=== PATIENT | female | born 2000 | race Caucasian/White ===

== ENCOUNTER 2018-09-15 22:32 | Emergency (ER) | payer OTHER ==
--- NOTE | 2018-09-15 23:11 | ERPHSYRPT ---
- History of Present Illness Time Seen by Provider: 09/15/18 23:07 Source: patient Exam Limitations: no limitations Patient Subjective Stated Complaint: pt reports shes had 2 positive at home tests. pt reports both tests were "faintly" positive, pt reports s/s, states she has breast tenderness and low back pain as well as morning sickness. pt states she believes she is 2 months . Triage Nursing Assessment: pt is aox3, pupils perrl, afebrile, resps easy and non labored, radial pulses strong and equal, cap refill < 3 seconds, abd soft non tender, pt skin pink warm dry. Physician History: Pt had her last menstrual period 2 months ago, she had few cramps, denies current complaints. She had 2 home tests, vaguely positive, and she is concerned, that she is possibly . She denies vaginal bleeding, discharge, current pain, cramps or other complaints. Timing/Duration: gradual onset, other (2 months) Activites at Onset: none Quality: cramping Onset Location: unknown Pain Radiation: none Severity of Pain-Max: moderate Severity of Pain-Current: none Prior abdominal problems: none Sexual intercourse history: single partner Modifying Factors: Improves With: nothing Associated Symptoms: denies symptoms Allergies/Adverse Reactions: No Known Drug Allergies Allergy (Unverified 09/15/18 22:56) Home Medications: No Reportable Medications [No Reported Medications] 09/15/18 [History] Hx Tetanus, Diphtheria Vaccination/Date Given: Yes Hx Influenza Vaccination/Date Given: No Hx Pneumococcal Vaccination/Date Given: No - Review of Systems Constitutional: No Symptoms Ears, Nose, & Throat: No Symptoms Respiratory: No Symptoms Cardiac: No Symptoms Abdominal/Gastrointestinal: Other (cramps) Genitourinary Symptoms: No Symptoms Musculoskeletal: No Symptoms Skin: No Symptoms Neurological: No Symptoms All Other Systems: Reviewed and Negative - Past Medical History Pertinent Past Medical History: No - Past Surgical History Past Surgical History: Yes Other Surgical History: ear tubes as a child - Social History Smoking Status: Never smoker Drug Use: none Patient Lives Alone: Yes - Female History Hx Last Menstrual Period: 07/10/18 Hx Now: Yes - Nursing Vital Signs Nursing Vital Signs: Initial Vital Signs Temperature 98.4 F 09/15/18 22:36 Pulse Rate 100 H 09/15/18 22:36 Respiratory Rate 20 09/15/18 22:36 Blood Pressure 151/81 09/15/18 22:36 O2 Sat by Pulse Oximetry 99 09/15/18 22:36 Pain Scale Pain Intensity 0 - Physical Exam General Appearance: no apparent distress Eye Exam: eyes nml inspection Ears, Nose, Throat Exam: normal ENT inspection Neck Exam: normal inspection, non-tender Respiratory Exam: normal breath sounds, lungs clear Cardiovascular Exam: regular rate/rhythm, normal heart sounds, normal peripheral pulses, No murmur Gastrointestinal/Abdomen Exam: soft, normal bowel sounds, No tenderness, No distention, No mass, No guarding, No ecchymosis, No rebound, No organomegaly Pelvic Exam: not done Back Exam: normal inspection, No CVA tenderness Extremity Exam: normal inspection Neurologic Exam: alert, oriented x 3, normal mood/affect Skin Exam: normal color, warm, dry Lymphatic Exam: adenopathy SpO2 Interpretation: normal SpO2: 99 O2 Delivery: Room Air - Course Nursing assessment & vital signs reviewed: Yes Ordered Tests: Active Orders 24 hr Category Date Time Status HCG,QUALITATIVE URINE Stat Lab 09/15/18 23:40 Completed Lab/Rad Data: Laboratory Results 09/15/18 Range/Units 23:40 Urine HCG, Qual NEGATIVE (Negative) - Progress Progress: unchanged Air Movement: good Progress Note: 09/16/18 00:07 Pt remains pain free, asymptomatic, informed about negative urine tets , and discharged to follow up with her physician next week. Blood Culture(s) Obtained: No Antibiotics given: No Counseled pt/family regarding: lab results, diagnosis, need for follow-up - Departure Departure Disposition: Home Clinical Impression: Abdominal pain Qualifiers: Abdominal location: generalized Qualified Code(s): R10.84 - Generalized abdominal pain Condition: Stable Critical Care Time: No Referrals: DOCTOR,NO FAMILY [Primary Care Provider] - Instructions: Symptoms Additional Instructions: Rest x 2-3 days, drink plenty of fluids, and follow up with your physician in 2- 3 days, return if severe pain, vomiting, vaginal bleeding!
[2018-09-16 00:09] VITALS: O2SAT 99
[2018-09-16 00:35] VITALS: BP 134/76; PULSE 93
== END 2018-09-16 00:38 | disposition home or self-care (01) ==
LOC: ED 22:32
DX: R10.84 Generalized abdominal pain (principal)
CPT/HCPCS: 84703; 99283

== ENCOUNTER 2018-10-13 22:49 | Emergency (ER) | payer OTHER ==
[2018-10-13 23:09] VITALS: PULSE 77; O2SAT 98
[2018-10-14] MEDS ORDERED: Rocephin 1000 MG INJ IM ONE (00:18)
[2018-10-14] MEDS ORDERED: Rocephin 1000 MG INJ ONE (00:26)
--- NOTE | 2018-10-14 00:28 | ERPHSYRPT ---
- History of Present Illness Time Seen by Provider: 10/14/18 00:05 Source: patient Exam Limitations: no limitations Patient Subjective Stated Complaint: Left earache/drainage Triage Nursing Assessment: Patient ambulated back to ED and transferred self to bed. Patient A+O X 3. Patient's skin pink, warm and dry. Patient complains of left ear pain 7/10 constant throbbing pain. Patient states last night she noticed drainage coming from left ear around 2100. Patient reports having rafael ear tubes placed in Mar of this year. Patient states drainage was thick yellow/ white. Physician History: 1 y/o white female with h/o bilat myringotomy tubes placed in March 2018 for recurrent ear infections presents with mild left earache and yellowish drainage. began at 2100 last pm. this is second time she has had tubes placed. denies fever. her ent doctor is Dr. Jimenez. Timing/Duration: abrupt onset, this evening Severity: mild ENT Location: ear (L) Prearrival Treatment: no prearrival treatment Modifying Factors: Improves With: nothing Associated Symptoms: ear pain (L), No fever, No chills, No change in hearing Allergies/Adverse Reactions: No Known Drug Allergies Allergy (Verified 10/13/18 22:58) Hx Tetanus, Diphtheria Vaccination/Date Given: Yes Hx Influenza Vaccination/Date Given: No Hx Pneumococcal Vaccination/Date Given: No Immunizations Up to Date: Yes - Review of Systems Constitutional: No Symptoms Eyes: No Symptoms Ears, Nose, & Throat: Ear Pain (left), Ear Discharge (left) Respiratory: No Symptoms Cardiac: No Symptoms Abdominal/Gastrointestinal: No Symptoms Genitourinary Symptoms: No Symptoms Musculoskeletal: No Symptoms Skin: No Symptoms Neurological: No Symptoms Psychological: No Symptoms Endocrine: No Symptoms Hematologic/Lymphatic: No Symptoms Immunological/Allergic: No Symptoms All Other Systems: Reviewed and Negative - Past Medical History Pertinent Past Medical History: No Neurological History: No Pertinent History ENT History: No Pertinent History Cardiac History: No Pertinent History Respiratory History: No Pertinent History Endocrine Medical History: No Pertinent History Musculoskeletal History: No Pertinent History GI Medical History: No Pertinent History History: No Pertinent History Psycho-Social History: No Pertinent History Female Reproductive Disorders: No Pertinent History - Past Surgical History Past Surgical History: Yes Neuro Surgical History: No Pertinent History Cardiac: No Pertinent History Respiratory: No Pertinent History Gastrointestinal: No Pertinent History Genitourinary: No Pertinent History Musculoskeletal: No Pertinent History Female Surgical History: No Pertinent History Other Surgical History: rafael ear tubes in mar 2018 - Social History Smoking Status: Never smoker Exposure to second hand smoke: No Drug Use: none Patient Lives Alone: No - Female History Hx Last Menstrual Period: last week Hx Now: No - Nursing Vital Signs Nursing Vital Signs: Initial Vital Signs Temperature 98.3 F 10/13/18 23:00 Pulse Rate 77 10/13/18 23:00 Respiratory Rate 18 10/13/18 23:00 Blood Pressure 143/88 10/13/18 23:00 O2 Sat by Pulse Oximetry 98 10/13/18 23:00 Pain Scale Pain Intensity 7 - Physical Exam General Appearance: no apparent distress, alert, anxiety Eye Exam: bilateral eye: normal inspection, PERRL, EOMI Ear Exam: left ear: discharge, bilateral ear: auricle normal, canal normal, other (myringotomy tubes in place. ?opening left tm with tube moved.) Nasal Exam: normal inspection Throat Exam: normal, pharynx normal, dental tenderness Neck Exam: normal inspection, non-tender, supple, full range of motion, trachea midline Cardiovascular/Respiratory Exam: chest non-tender, normal breath sounds, regular rate/rhythm, heart sounds normal Abdominal Exam: non-tender Neurologic Exam: alert, oriented x 3, cooperative, monorail hooker II-XII nml as tested Skin Exam: normal color, warm, dry SpO2 Interpretation: normal SpO2: 98 O2 Delivery: Room Air - Course Nursing assessment & vital signs reviewed: Yes Ordered Tests: Medication Summary Discontinued Medications Generic Name Dose Route Start Last Admin Trade Name Gioq PRN Reason Stop Dose Admin Ceftriaxone Sodium 1,000 mg 10/14/18 00:18 Rocephin 1000 Mg Inj IM 10/14/18 00:19 STAT ONE - Progress Progress: unchanged Counseled pt/family regarding: diagnosis, need for follow-up - Departure Departure Disposition: Home Clinical Impression: Left otitis media Condition: Stable Critical Care Time: No Referrals: DOCTOR,NO FAMILY [Primary Care Provider] - Additional Instructions: follow up with ENT doctor tomorrow for further management. Prescriptions: Azithromycin 250 mg [Zithromax 250 MG TABLET] 250 mg PO ZPACK #6 tablet
[2018-10-14 01:10] VITALS: BP 139/84
== END 2018-10-14 01:03 | disposition home or self-care (01) ==
LOC: ED 22:49
DX: H66.92 Otitis media, unspecified, left ear (principal)
CPT/HCPCS: 96372; 99283; J0696

== ENCOUNTER 2019-01-05 21:41 | Emergency (ER) | payer OTHER ==
[2019-01-05] MEDS ORDERED: Sodium Chloride 0.9% 1000 ML 1,000 ML IV STA (22:03)
[2019-01-05] MEDS ORDERED: Sodium Chloride 0.9% 1000 ML 1,000 ML ONE (22:12)
[2019-01-05 22:29] LABS: Appearance CLOUDY (CLEAR); Bilirubin NEGATIVE (NEGATIVE); Blood NEGATIVE Ery/ul (0-5); Epithelial Cells FEW /HPF (FEW); Glucose NEGATIVE (NEGATIVE); Ketones NEGATIVE (NEGATIVE); Leukocyte Esterase SMALL (NEGATIVE); Mucus SLIGHT /HPF (NEGATIVE); Nitrite NEGATIVE (NEGATIVE); Protein,Urine Dip NEGATIVE (Negative); Specific Gravity 1.024 (1.005-1.025); Urobilinogen NEGATIVE mg/dL (0-1)
[2019-01-05 22:30] LABS: Absolute Neutrophil Ct (ANC) 7.49 (1.4-6.9); BASOPHIL % 0.2 % (0.0-0.4); Basophil (Absolute #) 0.02 (0-0.4); Eosinophil % 0.8 % (0.00-5.0); Hematocrit 38.5 % (35-47); Hemoglobin 12.6 gm/dl (12.0-16.0); Lymphocyte (Absolute #) 3.71 (1.0-4.6); Lymphocytes % 28.9 % (24.0-44.0); Mean Cell Volume 78.3 fl (78-100); Mean Corpuscular Hemoglobin 25.6 pg (26-32); Mean Corpuscular Hgb Concent. 32.7 g/dl (32-36); Mean Platelet Volume 9.7 fl (6-9.5); Monocyte (Absolute #) 1.52 (0.0-1.3); Monocytes % 11.8 % (0.0-12.0); Neutrophil % 58.3 % (36.0-66.0); Platelet Count 276 K/mm3 (150-450); Red Blood Count 4.92 M/mm3 (4.1-5.4); Red Cell Distribution Width 14.9 % (11.5-14.0); White Blood Count 12.8 K/mm3 (4.0-10.5)
[2019-01-05 22:41] LABS: Amphetamine,Urine NEGATIVE (NEGATIVE); Barbiturate,Urine NEGATIVE (NEGATIVE); Benzodiazepine,Urine NEGATIVE (NEGATIVE); Cocaine,Urine NEGATIVE (NEGATIVE); Methadone,Urine NEGATIVE (NEGATIVE); Opiate,Urine NEGATIVE (NEGATIVE); PCP,Urine NEGATIVE (NEGATIVE); THC,Urine NEGATIVE (NEGATIVE)
[2019-01-05 22:41] LABS: ALBUMIN 4.1 g/dL (3.5-5.0); ALKALINE PHOSPHATASE 55 U/L (38-126); AMYLASE 52 U/L (30-110); BLOOD UREA NITROGEN 12 mg/dL (7-17); CHLORIDE 106 mmol/L (98-107); Calcium 9.2 mg/dL (8.4-10.2); Carbon Dioxide 29 mmol/L (22-30); Creatinine 1 1.01 mg/dL (0.52-1.04); Glucose 77 mg/dL (74-106); LIPASE 83 U/L (23-300); Potassium 3.8 mmol/L (3.5-5.1); SGOT/AST 29 U/L (14-36); SGPT/ALT 18 U/L (0-35); SODIUM 143 mmol/L (137-145); Total Protein 7.8 g/dL (6.3-8.2)
[2019-01-05] MEDS ORDERED: Cipro 500 MG PO ONE (23:38)
--- NOTE | 2019-01-05 23:38 | ERPHSYRPT ---
- History of Present Illness Time Seen by Provider: 01/05/19 22:40 Historian: patient Exam Limitations: no limitations Patient Subjective Stated Complaint: pt states for past 2 days she has been having pain in her rt side radiating around to her abd. states she has been nasueated, no vomiting. and has been light headed at times. Triage Nursing Assessment: pt alert and oriented, asnwers questions approp. pt ambulatory with steady gait noted. respirations nonlabored with lungs cta. abd soft and nontender. back nontender to light palpation. Physician History: patient is a 18-year-old white female presents with right flank pain. She's had no menses for 3-1/2 months. Her flank pain is worse when she is sitting up straight better when she's reclining. She's had no vomiting or diarrhea some nausea no change in urination. She's had no fever chills or sweats. Timing/Duration: day(s) (3) Activities at Onset: none Quality: cramping, sharpness Abdominal Pain Onset Location: flank Pain Radiation: RLQ Severity of Pain-Max: moderate Severity of Pain-Current: moderate Modifying Factors: Improves With: nothing Associated Symptoms: other (aamenorrhea) Previous symptoms: no prior history Allergies/Adverse Reactions: No Known Drug Allergies Allergy (Verified 01/05/19 21:58) Hx Tetanus, Diphtheria Vaccination/Date Given: Yes Hx Influenza Vaccination/Date Given: No Hx Pneumococcal Vaccination/Date Given: No Immunizations Up to Date: Yes - Review of Systems Constitutional: No Fever, No Chills Eyes: No Symptoms Ears, Nose, & Throat: No Symptoms Respiratory: No Cough, No Dyspnea Cardiac: No Chest Pain, No Edema, No Syncope Abdominal/Gastrointestinal: Abdominal Pain, Nausea, No Vomiting, No Diarrhea Genitourinary Symptoms: Flank Pain, No Dysuria Musculoskeletal: No Back Pain, No Neck Pain Skin: No Rash Neurological: No Dizziness, No Focal Weakness, No Sensory Changes Psychological: No Symptoms Endocrine: No Symptoms All Other Systems: Reviewed and Negative - Past Medical History Pertinent Past Medical History: No Neurological History: No Pertinent History ENT History: No Pertinent History Cardiac History: No Pertinent History Respiratory History: No Pertinent History Endocrine Medical History: No Pertinent History Musculoskeletal History: No Pertinent History GI Medical History: No Pertinent History History: No Pertinent History Psycho-Social History: No Pertinent History Female Reproductive Disorders: No Pertinent History - Past Surgical History Past Surgical History: Yes Neuro Surgical History: No Pertinent History Cardiac: No Pertinent History Respiratory: No Pertinent History Gastrointestinal: No Pertinent History Genitourinary: No Pertinent History Musculoskeletal: No Pertinent History Female Surgical History: No Pertinent History Other Surgical History: rafael ear tubes in mar 2018 - Social History Smoking Status: Never smoker Exposure to second hand smoke: No Drug Use: none Patient Lives Alone: No - Female History Hx Last Menstrual Period: 3-4 mos ago Hx Now: No (unsure) - Nursing Vital Signs Nursing Vital Signs: Initial Vital Signs Temperature 98.5 F 01/05/19 21:49 Pulse Rate 59 L 01/05/19 21:49 Respiratory Rate 18 01/05/19 21:49 Blood Pressure 155/96 01/05/19 21:49 O2 Sat by Pulse Oximetry 97 01/05/19 21:49 Pain Scale Pain Intensity 5 - Physical Exam General Appearance: no apparent distress, alert Eye Exam: PERRL/EOMI, eyes nml inspection Ears, Nose, Throat Exam: normal ENT inspection, pharynx normal, moist mucous membranes Neck Exam: normal inspection, non-tender, supple, full range of motion Respiratory Exam: normal breath sounds, lungs clear, No respiratory distress Cardiovascular Exam: regular rate/rhythm, normal heart sounds Gastrointestinal/Abdomen Exam: soft, No tenderness, No mass Back Exam: normal inspection, normal range of motion, No CVA tenderness, No vertebral tenderness Extremity Exam: normal inspection, normal range of motion, pelvis stable Neurologic Exam: alert, oriented x 3, cooperative, normal mood/affect, nml cerebellar function, sensation nml, No motor deficits Skin Exam: normal color, warm, dry SpO2: 100 - CT Exams Abdomen/Pelvis CT Interpretation: Other (CT scan shows no evidence of appendicitis no hydronephrosis no ureteral stones there is what is described as a prominence of the left adnexa measuring 3.7 x 6.3 cm no stranding no free fluid this of course is opposite the side where pain is.) Ordered Tests: Active Orders 24 hr Category Date Time Status IV Insertion STAT Care 01/05/19 22:03 Active ABDOMEN AND PELVIS W/0 CONTRAS [CT] Stat Exams 01/05/19 22:06 Taken AMYLASE Stat Lab 01/05/19 22:28 Completed CBC W DIFF Stat Lab 01/05/19 22:28 Completed CMP Stat Lab 01/05/19 22:28 Completed CULTURE,URINE Stat Lab 01/05/19 22:24 Received HCG,QUALITATIVE URINE Stat Lab 01/05/19 22:24 Completed LIPASE Stat Lab 01/05/19 22:28 Completed Lactic Acid Stat Lab 01/05/19 22:25 Completed UA W/RFX UR CULTURE Stat Lab 01/05/19 22:24 Completed Urine Triage Profile Stat Lab 01/05/19 22:24 Completed Medication Summary Discontinued Medications Generic Name Dose Route Start Last Admin Trade Name [place] PRN Reason Stop Dose Admin Sodium Chloride 1,000 mls @ 999 mls/hr 01/05/19 22:03 01/05/19 22:15 Sodium Chloride 0.9% 1000 Ml IV 01/05/19 23:03 999 mls/hr .Q1H1M STA Administration Sodium Chloride Confirm 01/05/19 22:12 Sodium Chloride 0.9% 1000 Ml Administered 01/05/19 22:13 Dose 1,000 mls @ ud .[facility]OUTE .[facility] Lab/Rad Data: Laboratory Result Diagrams 01/05/19 22:28 01/05/19 22:28 Laboratory Results 01/05/19 01/05/19 01/05/19 Range/Units 22:28 22:28 22:25 WBC 12.8 H (4.0-10.5) K/mm3 RBC 4.92 (4.1-5.4) M/mm3 Hgb 12.6 (12.0-16.0) gm/dl Hct 38.5 (35-47) % MCV 78.3 (78-100) fl MCH 25.6 L (26-32) pg MCHC 32.7 (32-36) g/dl RDW 14.9 H (11.5-14.0) % Plt Count 276 (150-450) K/mm3 MPV 9.7 H (6-9.5) fl Gran % 58.3 (36.0-66.0) % Eos # (Auto) 0.10 (0-0.5) Absolute Lymphs (auto) 3.71 (1.0-4.6) Absolute Monos (auto) 1.52 H (0.0-1.3) Lymphocytes % 28.9 (24.0-44.0) % Monocytes % 11.8 (0.0-12.0) % Eosinophils % 0.8 (0.00-5.0) % Basophils % 0.2 (0.0-0.4) % Absolute Granulocytes 7.49 H (1.4-6.9) Basophils # 0.02 (0-0.4) Sodium 143 (137-145) mmol/L Potassium 3.8 (3.5-5.1) mmol/L Chloride 106 (98-107) mmol/L Carbon Dioxide 29 (22-30) mmol/L Anion Gap 12.0 (5-15) MEQ/L BUN 12 (7-17) mg/dL Creatinine 1.01 (0.52-1.04) mg/dL Estimated GFR > 60.0 ML/MIN Glucose 77 (74-106) mg/dL Lactic Acid 1.4 (0.4-2.0) Calcium 9.2 (8.4-10.2) mg/dL Total Bilirubin 0.30 (0.2-1.3) mg/dL AST 29 (14-36) U/L ALT 18 (0-35) U/L Alkaline Phosphatase 55 (38-126) U/L Serum Total Protein 7.8 (6.3-8.2) g/dL Albumin 4.1 (3.5-5.0) g/dL Amylase 52 (30-110) U/L Lipase 83 (23-300) U/L Urine Color (YELLOW) Urine Appearance (CLEAR) Urine pH (5-6) Ur Specific Hudson (1.005-1.025) Urine Protein (Negative) Urine Ketones (NEGATIVE) Urine Blood (0-5) Marc/ul Urine Nitrite (NEGATIVE) Urine Bilirubin (NEGATIVE) Urine Urobilinogen (0-1) mg/dL Ur Leukocyte Esterase (NEGATIVE) Urine WBC (Auto) (0-5) /HPF Urine RBC (Auto) (0-2) /HPF U Epithel Cells (Auto) (FEW) /HPF Urine Bacteria (Auto) (NEGATIVE) /HPF Urine Mucus (Auto) (NEGATIVE) /HPF Urine Culture Reflexed (NO) Urine Glucose (NEGATIVE) mg/dL Urine HCG, Qual (Negative) Urine Opiates Level (NEGATIVE) Ur Methadone (NEGATIVE) Urine Barbiturates (NEGATIVE) Ur Phencyclidine (PCP) (NEGATIVE) Urine Amphetamine (NEGATIVE) U Benzodiazepine Level (NEGATIVE) Urine Cocaine (NEGATIVE) Urine Marijuana (THC) (NEGATIVE) 01/05/19 01/05/19 01/05/19 Range/Units 22:24 22:24 22:24 WBC (4.0-10.5) K/mm3 RBC (4.1-5.4) M/mm3 Hgb (12.0-16.0) gm/dl Hct (35-47) % MCV (78-100) fl MCH (26-32) pg MCHC (32-36) g/dl RDW (11.5-14.0) % Plt Count (150-450) K/mm3 MPV (6-9.5) fl Gran % (36.0-66.0) % Eos # (Auto) (0-0.5) Absolute Lymphs (auto) (1.0-4.6) Absolute Monos (auto) (0.0-1.3) Lymphocytes % (24.0-44.0) % Monocytes % (0.0-12.0) % Eosinophils % (0.00-5.0) % Basophils % (0.0-0.4) % Absolute Granulocytes (1.4-6.9) Basophils # (0-0.4) Sodium (137-145) mmol/L Potassium (3.5-5.1) mmol/L Chloride (98-107) mmol/L Carbon Dioxide (22-30) mmol/L Anion Gap (5-15) MEQ/L BUN (7-17) mg/dL Creatinine (0.52-1.04) mg/dL Estimated GFR ML/MIN Glucose (74-106) mg/dL Lactic Acid (0.4-2.0) Calcium (8.4-10.2) mg/dL Total Bilirubin (0.2-1.3) mg/dL AST (14-36) U/L ALT (0-35) U/L Alkaline Phosphatase (38-126) U/L Serum Total Protein (6.3-8.2) g/dL Albumin (3.5-5.0) g/dL Amylase (30-110) U/L Lipase (23-300) U/L Urine Color YELLOW (YELLOW) Urine Appearance CLOUDY (CLEAR) Urine pH 5.0 (5-6) Ur Specific Hudson 1.024 (1.005-1.025) Urine Protein NEGATIVE (Negative) Urine Ketones NEGATIVE (NEGATIVE) Urine Blood NEGATIVE (0-5) Marc/ul Urine Nitrite NEGATIVE (NEGATIVE) Urine Bilirubin NEGATIVE (NEGATIVE) Urine Urobilinogen NEGATIVE (0-1) mg/dL Ur Leukocyte Esterase SMALL (NEGATIVE) Urine WBC (Auto) 11-15 (0-5) /HPF Urine RBC (Auto) 3-5 (0-2) /HPF U Epithel Cells (Auto) FEW (FEW) /HPF Urine Bacteria (Auto) NONE (NEGATIVE) /HPF Urine Mucus (Auto) SLIGHT (NEGATIVE) /HPF Urine Culture Reflexed YES (NO) Urine Glucose NEGATIVE (NEGATIVE) mg/dL Urine HCG, Qual NEGATIVE (Negative) Urine Opiates Level NEGATIVE (NEGATIVE) Ur Methadone NEGATIVE (NEGATIVE) Urine Barbiturates NEGATIVE (NEGATIVE) Ur Phencyclidine (PCP) NEGATIVE (NEGATIVE) Urine Amphetamine NEGATIVE (NEGATIVE) U Benzodiazepine Level NEGATIVE (NEGATIVE) Urine Cocaine NEGATIVE (NEGATIVE) Urine Marijuana (THC) NEGATIVE (NEGATIVE) - Progress Progress: unchanged - Departure Departure Disposition: Home Clinical Impression: Flank pain, Urinary tract infection Condition: Stable Critical Care Time: No Referrals: DOCTOR,NO FAMILY [Primary Care Provider] - Instructions: Flank Pain Prescriptions: Ciprofloxacin [Cipro 500 MG] 500 mg PO BID #14 tablet Diclofenac Sodium 50 mg [Voltaren 50 mg] 50 mg PO TID 10 Days #30 tablet.ec
[2019-01-05] MEDS ORDERED: VOLTAREN 50 MG PO STA (23:40)
[2019-01-05] MEDS ORDERED: Cipro 500 MG ONE (23:41)
[2019-01-05 23:59] VITALS: BP 117/92; PULSE 83; O2SAT 99
[2019-01-06 00:23] LABS: Slide Review 1 YES
--- NOTE | 2019-01-06 08:42 | XRAY ---
Indication: Right flank pain and nausea. Elevated WBC. Multiple contiguous axial images obtained through the abdomen and pelvis without contrast as ordered. Comparison: None Lung bases are clear. Heart is borderline enlarged. Stomach is distended with food. Noncontrasted stomach and bowel loops appear nonobstructed. Normal appendix. Left adnexa demonstrates a 6.2 x 3.9 cm lobular noncalcified soft tissue mass, possible ovary in etiology. No free fluid/air. Remaining liver, gallbladder, pancreas, spleen, adrenal glands, kidneys, ureters, bladder, uterus, and aorta appear unremarkable for noncontrast exam. Osseous structures intact. Impression: 1. Left adnexa soft tissue mass as detailed. Pelvic ultrasound may yield further information. 2. Remaining CT abdomen/pelvis without contrast exam is negative. Comment: Preliminary interpretation was made by [facility]. No critical discrepancy. CT DI 25.34
== END 2019-01-06 00:06 | disposition home or self-care (01) ==
LOC: ED 21:41
DX: R10.9 Unspecified abdominal pain (principal); N39.0 Urinary tract infection, site not specified
CPT/HCPCS: 36000; 36415; 74176; 80053; 80307; 81001; 82150; 83605; 83690; 84703; 85025; 87077; 87086; 87186; 96360; 99284; A9270-GY

== ENCOUNTER 2019-09-14 20:26 | Emergency (ER) | payer OTHER ==
[2019-09-14] MEDS ORDERED: Sodium Chloride 0.9% 1000 ML 1,000 ML ONE (21:08)
[2019-09-14] MEDS: Sodium Chloride 0.9% 1000 ML 1,000 ML IV SCH (21:09)
[2019-09-14 21:17] LABS: Absolute Neutrophil Ct (ANC) 9.17 (1.4-6.9); BASOPHIL % 0.2 % (0.0-0.4); Basophil (Absolute #) 0.03 (0-0.4); Eosinophil % 3.6 % (0.00-5.0); Eosinophil (Absolute #) 0.52 (0-0.5); Hematocrit 40.7 % (35-47); Hemoglobin 13.2 gm/dl (12.0-16.0); Lymphocyte (Absolute #) 3.45 (1.0-4.6); Lymphocytes % 23.8 % (24.0-44.0); Mean Cell Volume 75.9 fl (78-100); Mean Corpuscular Hemoglobin 24.6 pg (26-32); Mean Corpuscular Hgb Concent. 32.4 g/dl (32-36); Mean Platelet Volume 9.4 fl (7.5-11.0); Monocyte (Absolute #) 1.32 (0.0-1.3); Monocytes % 9.1 % (0.0-12.0); Neutrophil % 63.3 % (36.0-66.0); Platelet Count 303 K/mm3 (150-450); Red Blood Count 5.36 M/mm3 (4.1-5.4); Red Cell Distribution Width 15.5 % (11.5-14.0); White Blood Count 14.5 K/mm3 (4.0-10.5)
[2019-09-14 21:18] LABS: INR 1.19 (0.8-3.0); PROTIME 13.5 SECONDS (9.95-12.35)
[2019-09-14 21:21] LABS: PTT 34.3 SECONDS (25.3-37.0)
[2019-09-14 21:34] LABS: ALBUMIN 4.1 g/dL (3.5-5.0); ALKALINE PHOSPHATASE 77 U/L (38-126); AMYLASE 62 U/L (30-110); ANION GAP 11.6 MEQ/L (5-15); BLOOD UREA NITROGEN 10 mg/dL (7-17); CHLORIDE 107 mmol/L (98-107); CK-Creatinine Phosphokinase 63 U/L (30-135); Calcium 9.1 mg/dL (8.4-10.2); Carbon Dioxide 24 mmol/L (22-30); Creatinine 1 0.68 mg/dL (0.52-1.04); Glucose 97 mg/dL (74-106); LIPASE 63 U/L (23-300); MAGNESIUM 1.8 mg/dL (1.6-2.3); Potassium 3.8 mmol/L (3.5-5.1); SGOT/AST 21 U/L (14-36); SGPT/ALT 22 U/L (0-35); SODIUM 138 mmol/L (137-145); Total Protein 7.7 g/dL (6.3-8.2)
[2019-09-14 21:54] LABS: Appearance CLOUDY (CLEAR); Bacteria FEW /HPF (NEGATIVE); Bilirubin NEGATIVE (NEGATIVE); Blood NEGATIVE Ery/ul (0-5); Epithelial Cells FEW /HPF (FEW); Glucose NEGATIVE (NEGATIVE); Hyaline Casts 0-2 /LPF (0-2); Ketones NEGATIVE (NEGATIVE); Leukocyte Esterase MODERATE (NEGATIVE); Mucus SLIGHT /HPF (NEGATIVE); Nitrite NEGATIVE (NEGATIVE); Protein,Urine Dip NEGATIVE (Negative); Specific Gravity 1.021 (1.005-1.025); Urobilinogen NEGATIVE mg/dL (0-1)
[2019-09-14 21:59] LABS: Budding Yeast Rare /HPF (NEGATIVE)
[2019-09-14 22:15] LABS: Erythrocyte Sedimentation Rate 41 mm/hr (0-20)
--- NOTE | 2019-09-14 22:16 | ERPHSYRPT ---
- History of Present Illness Time Seen by Provider: 09/14/19 20:30 Patient Subjective Stated Complaint: "I've have a cough and felt like I've had a fever over the past few days Triage Nursing Assessment: Pt presented alert et oriented x3 answering questions appropriately with obvious distress of dyspnea. pt reported sinus congestion, slightly productive cough, dyspnea, et chest pain ongoing over 3 days with worsening sx today. Pt reported home treatment with tylenol and dayquil. Pt denied nausea/vomiting/diarrhea. Pupils 3mm brisk reaction. Oral mucosa pink/moist. Symmetrical chest expansion. heart tones regular/clear without murmur/rub. Lungs clear with adequate airflow. Radial pulses +2 bilateral. Abdomen obese non-distended without palpable organomegaly. +1 dependent edema in bilateral lower extremities. Physician History: Is a 19-year-old white female who works at the [employer] who presents with a 3-day history of congestion cough some body aches no documented fever. She has felt warm. She has no known exposure to COVID. Timing/Duration: day(s) (3) Cough Quality/Degree: productive cough Modifying Factors: Improves With: nothing Associated Symptoms: cough, nasal congestion, nasal drainage, sinus infection Allergies/Adverse Reactions: No Known Drug Allergies Allergy (Verified 09/14/19 20:37) Hx Tetanus, Diphtheria Vaccination/Date Given: Yes Hx Influenza Vaccination/Date Given: No Hx Pneumococcal Vaccination/Date Given: No Travel Risk - International Travel Have you traveled outside of the country in past 3 weeks: No - Coronavirus Screening Are you exhibiting any of the following symptoms?: Yes Symptoms: Cough: New Onset, Shortness of Breath Close contact with a COVID-19 positive Pt in past 14-21 Days: No - Review of Systems Constitutional: Fever (Subjective), Lethargy, Malaise Eyes: No Symptoms Ears, Nose, & Throat: Nose Congestion, Nose Discharge, Sinus Drainage Respiratory: Cough, Dyspnea Cardiac: Chest Pain Abdominal/Gastrointestinal: No Symptoms Genitourinary Symptoms: No Symptoms Musculoskeletal: No Symptoms Neurological: No Symptoms Psychological: No Symptoms Endocrine: No Symptoms Hematologic/Lymphatic: No Symptoms Immunological/Allergic: No Symptoms All Other Systems: Reviewed and Negative - Past Medical History Pertinent Past Medical History: No Neurological History: No Pertinent History ENT History: No Pertinent History Cardiac History: No Pertinent History Respiratory History: No Pertinent History Endocrine Medical History: No Pertinent History Musculoskeletal History: No Pertinent History GI Medical History: No Pertinent History History: No Pertinent History Psycho-Social History: No Pertinent History Female Reproductive Disorders: No Pertinent History - Past Surgical History Past Surgical History: Yes Neuro Surgical History: No Pertinent History Cardiac: No Pertinent History Respiratory: No Pertinent History Gastrointestinal: No Pertinent History Genitourinary: No Pertinent History Musculoskeletal: No Pertinent History Female Surgical History: No Pertinent History Other Surgical History: rafael ear tubes in mar 2018 - Social History Smoking Status: Never smoker Exposure to second hand smoke: No Drug Use: none Patient Lives Alone: No - Female History Hx Last Menstrual Period: unknown Hx Now: No - Nursing Vital Signs Nursing Vital Signs: Initial Vital Signs Temperature 99.3 F 09/14/19 20:26 Pulse Rate 100 H 09/14/19 20:26 Respiratory Rate 18 09/14/19 20:26 Blood Pressure 120/84 09/14/19 20:26 O2 Sat by Pulse Oximetry 96 09/14/19 20:26 Pain Scale Pain Intensity 4 - Physical Exam General Appearance: mild distress, alert Eye Exam: PERRL/EOMI, eyes nml inspection Ears, Nose, Throat Exam: TMs normal, pharynx normal, moist mucous membranes, other (Nasal congestion discharge) Neck Exam: normal inspection, non-tender, supple, full range of motion Respiratory Exam: normal breath sounds, lungs clear, No respiratory distress Cardiovascular Exam: regular rate/rhythm, normal heart sounds Gastrointestinal/Abdomen Exam: soft, No tenderness Back Exam: normal inspection, No CVA tenderness, No vertebral tenderness Extremity Exam: normal inspection, normal range of motion Neurologic Exam: alert, oriented x 3, cooperative, normal mood/affect, sensation nml, No motor deficits Skin Exam: normal color, warm, dry, No rash Lymphatic Exam: No adenopathy SpO2: 97 - Course Nursing assessment & vital signs reviewed: Yes EKG Interpreted by Me: RATE (107), NORMAL AXIS, Non-specific ST Changes, Other (Intermittent bigeminy) - Radiology Exams Chest X-ray Interpretation: Interpreted by me, Negative Ordered Tests: Active Orders 24 hr Category Date Time Status [employer] STAT Care 09/14/19 21:04 Active EKG-ER Only STAT Care 09/14/19 21:02 Active IV Insertion STAT Care 09/14/19 21:10 Active Pulse Oximetry (ED) STAT Care 09/14/19 21:02 Active CHEST 1 VIEW (PORTABLE) Stat Exams 09/14/19 21:03 Taken CHEST WITH CONTRAST [CT] Stat Exams 09/14/19 22:41 Taken AMYLASE Stat Lab 09/14/19 21:00 Completed BLOOD CULTURE Stat Lab 09/14/19 21:40 Received CBC W DIFF Stat Lab 09/14/19 21:00 Completed CK-Creatinine Phosphokinase Stat Lab 09/14/19 21:00 Completed CMP Stat Lab 09/14/19 21:00 Completed CULTURE,URINE Stat Lab 09/14/19 21:00 Received D-DIMER QUANTITATIVE Stat Lab 09/14/19 21:00 Completed Erythrocyte Sedimentation Rate Stat Lab 09/14/19 21:00 Completed Ferritin Stat Lab 09/14/19 21:00 Completed LDH-LACTATE DEHYDROGENASE Stat Lab 09/14/19 21:00 Completed LIPASE Stat Lab 09/14/19 21:00 Completed Lactic Acid Stat Lab 09/14/19 21:43 Completed MAGNESIUM Stat Lab 09/14/19 21:00 Completed NT PRO BNP Stat Lab 09/14/19 21:00 Completed PROTIME WITH INR Stat Lab 09/14/19 21:00 Completed PTT Stat Lab 09/14/19 21:00 Completed TROPONIN Q3H Lab 09/14/19 21:00 Completed TROPONIN Q3H Lab 09/15/19 00:15 Ordered TROPONIN Q3H Lab 09/15/19 03:15 Ordered TROPONIN Q3H Lab 09/15/19 06:15 Ordered TROPONIN Q3H Lab 09/15/19 09:15 Ordered UA W/RFX UR CULTURE Stat Lab 09/14/19 21:00 Completed Medication Summary Generic Name Dose Route Start Last Admin Trade Name Freq PRN Reason Stop Dose Admin Sodium Chloride 1,000 mls @ 100 mls/hr 09/14/19 21:15 09/14/19 21:09 Sodium Chloride 0.9% 1000 Ml IV 10/14/19 21:14 100 mls/hr .Q10H REBECCA Administration Discontinued Medications Generic Name Dose Route Start Last Admin Trade Name Freq PRN Reason Stop Dose Admin Hydromorphone HCl 1 mg 09/14/19 22:31 Hydromorphone 1 Mg/Ml Ampule IV 09/14/19 22:32 STAT ONE Lab/Rad Data: Laboratory Result Diagrams 09/14/19 21:00 09/14/19 21:00 Laboratory Results 09/14/19 09/14/19 09/14/19 Range/Units 21:45 21:43 21:00 WBC (4.0-10.5) K/mm3 RBC (4.1-5.4) M/mm3 Hgb (12.0-16.0) gm/dl Hct (35-47) % MCV (78-100) fl MCH (26-32) pg MCHC (32-36) g/dl RDW (11.5-14.0) % Plt Count (150-450) K/mm3 MPV (7.5-11.0) fl Gran % (36.0-66.0) % Eos # (Auto) (0-0.5) Absolute Lymphs (auto) (1.0-4.6) Absolute Monos (auto) (0.0-1.3) Lymphocytes % (24.0-44.0) % Monocytes % (0.0-12.0) % Eosinophils % (0.00-5.0) % Basophils % (0.0-0.4) % Absolute Granulocytes (1.4-6.9) Basophils # (0-0.4) ESR (0-20) mm/hr PT (9.95-12.35) SECONDS INR (0.8-3.0) APTT (25.3-37.0) SECONDS D-Dimer (215-500) ng/mL Sodium (137-145) mmol/L Potassium (3.5-5.1) mmol/L Chloride (98-107) mmol/L Carbon Dioxide (22-30) mmol/L Anion Gap (5-15) MEQ/L BUN (7-17) mg/dL Creatinine (0.52-1.04) mg/dL Estimated GFR ML/MIN Glucose (74-106) mg/dL Lactic Acid 0.8 (0.4-2.0) Calcium (8.4-10.2) mg/dL Magnesium (1.6-2.3) mg/dL Ferritin (6.24-137) ng/mL Total Bilirubin (0.2-1.3) mg/dL AST (14-36) U/L ALT (0-35) U/L Alkaline Phosphatase (38-126) U/L Lactate Dehydrogenase (120-246) U/L Creatine Kinase (30-135) U/L Troponin I (0.000-0.034) ng/mL NT-Pro-B Natriuret Pep (0-450) pg/mL Serum Total Protein (6.3-8.2) g/dL Albumin (3.5-5.0) g/dL Amylase (30-110) U/L Lipase (23-300) U/L Urine Color YELLOW (YELLOW) Urine Appearance CLOUDY (CLEAR) Urine pH 6.0 (5-6) Ur Specific Duson 1.021 (1.005-1.025) Urine Protein NEGATIVE (Negative) Urine Ketones NEGATIVE (NEGATIVE) Urine Blood NEGATIVE (0-5) Marc/ul Urine Nitrite NEGATIVE (NEGATIVE) Urine Bilirubin NEGATIVE (NEGATIVE) Urine Urobilinogen NEGATIVE (0-1) mg/dL Ur Leukocyte Esterase MODERATE (NEGATIVE) Urine WBC (Auto) 11-15 (0-5) /HPF Urine RBC (Auto) 3-5 (0-2) /HPF U Hyaline Cast (Auto) 0-2 (0-2) /LPF U Epithel Cells (Auto) FEW (FEW) /HPF Urine Bacteria (Auto) FEW (NEGATIVE) /HPF Urine Mucus (Auto) SLIGHT (NEGATIVE) /HPF Urine Yeast (Budding) Rare (NEGATIVE) /HPF Urine Culture Reflexed YES (NO) Urine Glucose NEGATIVE (NEGATIVE) mg/dL Influenza Type A Ag NEGATIVE (NEGATIVE) Influenza Type B Ag NEGATIVE (NEGATIVE) RSV (PCR) NEGATIVE (Negative) 09/14/19 09/14/19 09/14/19 Range/Units 21:00 21:00 21:00 WBC (4.0-10.5) K/mm3 RBC (4.1-5.4) M/mm3 Hgb (12.0-16.0) gm/dl Hct (35-47) % MCV (78-100) fl MCH (26-32) pg MCHC (32-36) g/dl RDW (11.5-14.0) % Plt Count (150-450) K/mm3 MPV (7.5-11.0) fl Gran % (36.0-66.0) % Eos # (Auto) (0-0.5) Absolute Lymphs (auto) (1.0-4.6) Absolute Monos (auto) (0.0-1.3) Lymphocytes % (24.0-44.0) % Monocytes % (0.0-12.0) % Eosinophils % (0.00-5.0) % Basophils % (0.0-0.4) % Absolute Granulocytes (1.4-6.9) Basophils # (0-0.4) ESR (0-20) mm/hr PT (9.95-12.35) SECONDS INR (0.8-3.0) APTT (25.3-37.0) SECONDS D-Dimer (215-500) ng/mL Sodium (137-145) mmol/L Potassium (3.5-5.1) mmol/L Chloride (98-107) mmol/L Carbon Dioxide (22-30) mmol/L Anion Gap (5-15) MEQ/L BUN (7-17) mg/dL Creatinine (0.52-1.04) mg/dL Estimated GFR ML/MIN Glucose (74-106) mg/dL Lactic Acid (0.4-2.0) Calcium (8.4-10.2) mg/dL Magnesium (1.6-2.3) mg/dL Ferritin 15.2 (6.24-137) ng/mL Total Bilirubin (0.2-1.3) mg/dL AST (14-36) U/L ALT (0-35) U/L Alkaline Phosphatase (38-126) U/L Lactate Dehydrogenase 287 H (120-246) U/L Creatine Kinase (30-135) U/L Troponin I < 0.012 (0.000-0.034) ng/mL NT-Pro-B Natriuret Pep (0-450) pg/mL Serum Total Protein (6.3-8.2) g/dL Albumin (3.5-5.0) g/dL Amylase (30-110) U/L Lipase (23-300) U/L Urine Color (YELLOW) Urine Appearance (CLEAR) Urine pH (5-6) Ur Specific Duson (1.005-1.025) Urine Protein (Negative) Urine Ketones (NEGATIVE) Urine Blood (0-5) Marc/ul Urine Nitrite (NEGATIVE) Urine Bilirubin (NEGATIVE) Urine Urobilinogen (0-1) mg/dL Ur Leukocyte Esterase (NEGATIVE) Urine WBC (Auto) (0-5) /HPF Urine RBC (Auto) (0-2) /HPF U Hyaline Cast (Auto) (0-2) /LPF U Epithel Cells (Auto) (FEW) /HPF Urine Bacteria (Auto) (NEGATIVE) /HPF Urine Mucus (Auto) (NEGATIVE) /HPF Urine Yeast (Budding) (NEGATIVE) /HPF Urine Culture Reflexed (NO) Urine Glucose (NEGATIVE) mg/dL Influenza Type A Ag (NEGATIVE) Influenza Type B Ag (NEGATIVE) RSV (PCR) (Negative) 09/14/19 09/14/19 09/14/19 Range/Units 21:00 21:00 21:00 WBC 14.5 H (4.0-10.5) K/mm3 RBC 5.36 (4.1-5.4) M/mm3 Hgb 13.2 (12.0-16.0) gm/dl Hct 40.7 (35-47) % MCV 75.9 L (78-100) fl MCH 24.6 L (26-32) pg MCHC 32.4 (32-36) g/dl RDW 15.5 H (11.5-14.0) % Plt Count 303 (150-450) K/mm3 MPV 9.4 (7.5-11.0) fl Gran % 63.3 (36.0-66.0) % Eos # (Auto) 0.52 H (0-0.5) Absolute Lymphs (auto) 3.45 (1.0-4.6) Absolute Monos (auto) 1.32 H (0.0-1.3) Lymphocytes % 23.8 L (24.0-44.0) % Monocytes % 9.1 (0.0-12.0) % Eosinophils % 3.6 (0.00-5.0) % Basophils % 0.2 (0.0-0.4) % Absolute Granulocytes 9.17 H (1.4-6.9) Basophils # 0.03 (0-0.4) ESR 41 H (0-20) mm/hr PT 13.5 H (9.95-12.35) SECONDS INR 1.19 (0.8-3.0) APTT 34.3 (25.3-37.0) SECONDS D-Dimer 742 H* (215-500) ng/mL Sodium 138 (137-145) mmol/L Potassium 3.8 (3.5-5.1) mmol/L Chloride 107 (98-107) mmol/L Carbon Dioxide 24 (22-30) mmol/L Anion Gap 11.6 (5-15) MEQ/L BUN 10 (7-17) mg/dL Creatinine 0.68 (0.52-1.04) mg/dL Estimated GFR > 60.0 ML/MIN Glucose 97 (74-106) mg/dL Lactic Acid (0.4-2.0) Calcium 9.1 (8.4-10.2) mg/dL Magnesium 1.8 (1.6-2.3) mg/dL Ferritin (6.24-137) ng/mL Total Bilirubin 0.50 (0.2-1.3) mg/dL AST 21 (14-36) U/L ALT 22 (0-35) U/L Alkaline Phosphatase 77 (38-126) U/L Lactate Dehydrogenase (120-246) U/L Creatine Kinase 63 (30-135) U/L Troponin I (0.000-0.034) ng/mL NT-Pro-B Natriuret Pep 56.0 (0-450) pg/mL Serum Total Protein 7.7 (6.3-8.2) g/dL Albumin 4.1 (3.5-5.0) g/dL Amylase 62 (30-110) U/L Lipase 63 (23-300) U/L Urine Color (YELLOW) Urine Appearance (CLEAR) Urine pH (5-6) Ur Specific Duson (1.005-1.025) Urine Protein (Negative) Urine Ketones (NEGATIVE) Urine Blood (0-5) Marc/ul Urine Nitrite (NEGATIVE) Urine Bilirubin (NEGATIVE) Urine Urobilinogen (0-1) mg/dL Ur Leukocyte Esterase (NEGATIVE) Urine WBC (Auto) (0-5) /HPF Urine RBC (Auto) (0-2) /HPF U Hyaline Cast (Auto) (0-2) /LPF U Epithel Cells (Auto) (FEW) /HPF Urine Bacteria (Auto) (NEGATIVE) /HPF Urine Mucus (Auto) (NEGATIVE) /HPF Urine Yeast (Budding) (NEGATIVE) /HPF Urine Culture Reflexed (NO) Urine Glucose (NEGATIVE) mg/dL Influenza Type A Ag (NEGATIVE) Influenza Type B Ag (NEGATIVE) RSV (PCR) (Negative) - Progress Progress: improved Air Movement: fair Blood Culture(s) Obtained: Yes Antibiotics given: Yes - Departure Departure Disposition: Home Clinical Impression: Sinusitis, UTI (urinary tract infection) Condition: Stable Critical Care Time: No Referrals: DOCTOR,NO FAMILY [Primary Care Provider] - Instructions: Sinusitis, Adult (DC), Urinary Tract Infection, Adult (DC) Additional Instructions: Patient was swabbed for COVID patient was instructed to self isolate and quarantine until results are known. Prescriptions: Cephalexin Mh 500 mg [Keflex 500 mg] 500 mg PO TID #30 capsule
[2019-09-14] MEDS ORDERED: Hydromorphone 1 mg/ml Ampule IV ONE (22:31)
[2019-09-14 22:38] LABS: INFLUENZA A NEGATIVE (NEGATIVE); INFLUENZA B NEGATIVE (NEGATIVE); RESPIRATORY SYNCTIAL VIRUS NEGATIVE (Negative)
[2019-09-15 00:09] VITALS: BP 124/96; PULSE 93
[2019-09-15 00:26] VITALS: O2SAT 98
--- NOTE | 2019-09-15 09:05 | XRAY ---
Indication: Right lower quadrant pain. Vomiting and diarrhea. Multiple contiguous axial images obtained through the chest using 80 cc Isovue 370 contrast and PE protocol. Comparison: None There is suboptimal opacification of the pulmonary arteries limiting evaluation of the lobar and segmental branches. No large central pulmonary embolus. Heart is borderline enlarged. Aorta is normal in course and caliber. No pathologic mediastinal/hilar lymphadenopathy. Lungs are inflated and clear. Bony thorax intact with tiny multilevel Schmorl nodes. Limited upper abdomen demonstrates mild diffuse fatty liver. Impression: 1. Pulmonary embolus evaluation limited due to suboptimal opacification. No large central pulmonary embolus. 2. No acute cardiopulmonary abnormalities. 3. Mild fatty liver. Comment: Preliminary interpretation was made by C. No critical discrepancy.
--- NOTE | 2019-09-15 09:05 | XRAY ---
Indication: Short of breath. Comparison: None Portable chest demonstrates borderline cardiomegaly. No focal infiltrate, consolidation, or large effusion. Bony thorax intact. Impression: Borderline cardiomegaly. Negative for acute pneumonic process or CHF.
== END 2019-09-15 00:25 | disposition home or self-care (01) ==
LOC: ED 20:26
DX: J32.9 Chronic sinusitis, unspecified (principal); N39.0 Urinary tract infection, site not specified
CPT/HCPCS: 36000; 36415; 71045; 71260; 80053; 81001; 82150; 82550; 82728; 83605; 83615; 83690; 83735; 83880; 84484; 85025; 85379; 85610; 85652; 85730; 87040; 87086; 87631; 93005; 93041; 94760; 99284; U0003

== ENCOUNTER 2021-02-05 00:17 | Emergency (ER) | payer OTHER ==
--- NOTE | 2021-02-05 01:15 | ERPHSYRPT ---
- History of Present Illness Time Seen by Provider: 02/05/21 00:35 Source: patient Exam Limitations: no limitations Patient Subjective Stated Complaint: pt states her sister was diagnosed with covid yesterday and she has been having some mild symptoms. temp at [place] 99.2, occasional cough, sore throat, and wants to be tested. Triage Nursing Assessment: pt alert and oriented, answers questions approp. pt ambulatory with steady gait noted. respirations nonlabored with lungs cta. skin warm and dry. Physician History: Patient is a 20-year-old white female who presents with a request for testing for Covid she has had a fever she has been sick for 2 days with a cough her ears have been sore she saw her family doctor and was put on Keflex for her ears she is lost her sense of taste and smell she is producing green sputum. She was exposed to Covid from her sister during a family gathering for a . Timing/Duration: day(s) (2) Cough Quality/Degree: productive cough, sputum Possible Cause: illness exposure (Sister Covid positive) Modifying Factors: Improves With: coughing Associated Symptoms: fever, cough, headache, sore throat Allergies/Adverse Reactions: No Known Drug Allergies Allergy (Verified 02/05/21 00:38) Home Medications: Unobtainable 02/05/21 [History] Hx Tetanus, Diphtheria Vaccination/Date Given: Yes Hx Influenza Vaccination/Date Given: No Hx Pneumococcal Vaccination/Date Given: No Immunizations Up to Date: Yes Travel Risk - International Travel Have you traveled outside of the country in past 3 weeks: No - Coronavirus Screening Are you exhibiting any of the following symptoms?: Yes Symptoms: Cough: New Onset, Loss of Taste or Smell, Headaches/Body Aches/Fatigue Close contact with a COVID-19 positive Pt in past 14-21 Days: Yes - Vaccine Status Have you recieved a Covid-19 vaccination: Yes [employer]: [employer] - Review of Systems Constitutional: Fever, No Chills Eyes: No Symptoms Ears, Nose, & Throat: No Symptoms, Ear Discharge, Nose Congestion, Nose Discharge, Throat Pain, Painful Swallowing Respiratory: Cough, No Dyspnea Cardiac: No Chest Pain, No Edema, No Syncope Abdominal/Gastrointestinal: No Abdominal Pain, No Nausea, No Vomiting, No Diarrhea Genitourinary Symptoms: No Dysuria Musculoskeletal: No Back Pain, No Neck Pain Skin: No Rash Neurological: No Dizziness, No Focal Weakness, No Sensory Changes Psychological: No Symptoms Endocrine: No Symptoms All Other Systems: Reviewed and Negative - Past Medical History Pertinent Past Medical History: Yes Neurological History: Migraines ENT History: No Pertinent History Cardiac History: High Cholesterol, Hypertension Respiratory History: No Pertinent History Endocrine Medical History: No Pertinent History Musculoskeletal History: No Pertinent History GI Medical History: No Pertinent History History: No Pertinent History Psycho-Social History: Depression Female Reproductive Disorders: No Pertinent History - Past Surgical History Past Surgical History: Yes Neuro Surgical History: No Pertinent History Cardiac: No Pertinent History Respiratory: No Pertinent History Gastrointestinal: No Pertinent History Genitourinary: No Pertinent History Musculoskeletal: No Pertinent History Female Surgical History: No Pertinent History Other Surgical History: rafael ear tubes in mar 2018 - Social History Smoking Status: Never smoker Exposure to second hand smoke: No Drug Use: none Patient Lives Alone: No - Female History Hx Last Menstrual Period: irregular Hx Now: No - Nursing Vital Signs Nursing Vital Signs: Initial Vital Signs Temperature 97.6 F 02/05/21 00:26 Pulse Rate 73 02/05/21 00:26 Respiratory Rate 18 02/05/21 00:26 Blood Pressure 119/52 02/05/21 00:26 O2 Sat by Pulse Oximetry 98 02/05/21 00:26 Pain Scale Pain Intensity 0 - Physical Exam General Appearance: no apparent distress, alert Eye Exam: PERRL/EOMI, eyes nml inspection Ears, Nose, Throat Exam: normal ENT inspection, TMs normal, pharynx normal, moist mucous membranes Neck Exam: normal inspection, non-tender, supple, full range of motion Respiratory Exam: normal breath sounds, lungs clear, No respiratory distress Cardiovascular Exam: regular rate/rhythm, normal heart sounds Gastrointestinal/Abdomen Exam: soft, No tenderness Back Exam: normal inspection, No CVA tenderness, No vertebral tenderness Extremity Exam: normal inspection, normal range of motion Neurologic Exam: alert, oriented x 3, cooperative, normal mood/affect, sensation nml, No motor deficits Skin Exam: normal color, warm, dry, No rash Lymphatic Exam: No adenopathy SpO2 Interpretation: normal SpO2: 98 O2 Delivery: Room Air - Course Nursing assessment & vital signs reviewed: Yes - Radiology Exams Chest X-ray Interpretation: Interpreted by me, Negative Ordered Tests: Active Orders 24 hr Category Date Time Status CHEST 1 VIEW (PORTABLE) Stat Exams 02/05/21 00:55 Taken - Progress Progress: unchanged Air Movement: good Blood Culture(s) Obtained: No Antibiotics given: No - Departure Departure Disposition: Home Clinical Impression: Exposure to COVID-19 virus Condition: Stable Critical Care Time: No Referrals: RENETTA HI DO [Primary Care Provider] - Follow up/PCP as directed Instructions: Cough, Adult (DC)
[2021-02-05 01:40] VITALS: BP 112/64; PULSE 64; O2SAT 97
--- NOTE | 2021-02-05 07:53 | XRAY ---
Indication: Fever and cough. Suspect Covid 19. Comparison: September 14, 2019. Portable chest better inflated and clear. Heart remains borderline enlarged. Bony thorax intact. No new/acute abnormalities.
== END 2021-02-05 01:44 | disposition home or self-care (01) ==
LOC: ED 00:17
DX: R50.9 Fever, unspecified (principal); R05.9 Cough, unspecified; H92.03 Otalgia, bilateral; R43.9 Unspecified disturbances of smell and taste; Z20.822 Contact with and (suspected) exposure to COVID-19; I10 Essential (primary) hypertension; E78.5 Hyperlipidemia, unspecified
CPT/HCPCS: 71045; 99283; U0003